=== PATIENT | female | born 1990 | race Caucasian/White ===

== ENCOUNTER 2018-08-10 23:32 | Emergency (ER) | payer MEDICAID ==
[~2018-08-10] VITALS: Ht 172.7 cm; Wt 52.0 kg
[2018-08-11 00:23] VITALS: BP 157/91
== END 2018-08-11 02:10 | disposition left against medical advice (07) ==
LOC: ER 23:32
DX: Z53.21 Procedure and treatment not carried out due to patient leaving prior to being seen by health care provider (principal)

== ENCOUNTER 2019-03-25 14:39 | Inpatient (IN) | payer MEDICAID ==
[~2019-03-25] VITALS: Ht 167.6 cm; Wt 109.8 kg
[2019-03-25] MEDS ORDERED: SODIUM CHLORIDE 0.9% 1,000 ML IV ONE (15:30)
[2019-03-25 15:54] LABS: HEMATOCRIT. 31.1 % (36.0-48.0); HEMOGLOBIN. 10.7 g/dL (12.0-16.0); MEAN CORPUSCULAR HEMOGLOBIN 29.5 pg (28.0-32.0); MEAN CORPUSCULAR VOLUME 85.5 fL (81.0-99.0); MEAN PLATELET VOLUME 10.2 fl (7.4-10.4); PLATELET 114 x1000/uL (130-400); RED BLOOD CELL COUNT 3.64 mill/uL (4.2-5.4); RED CELL DISTRIBUTION WIDTH 14.7 % (11.6-14.6)
[2019-03-25 15:55] LABS: CHLORIDE 105 mEq/L (98-107)
[2019-03-25 16:08] LABS: PLATELET ESTIMATE DECREASED
[2019-03-25 16:20] LABS: B-HCG QUANTITATIVE 31870 mIU/mL (<3)
[2019-03-25] MEDS ORDERED: POTASSIUM CHLORIDE 20MEQ/PACKET PO ONE (16:30)
[2019-03-25] MEDS ORDERED: ACETAMINOPHEN 325MG TABLET PO ONE (16:45)
[2019-03-25 16:55] LABS: T4 FREE 1.36 ng/dL (0.76-1.46)
[2019-03-25 17:02] LABS: CLARITY URINE TURBID (CLEAR); KETONES URINE TRACE (NEGATIVE); LEUKOCYTE ESTERASE URINE 3+ (NEGATIVE); NITRITE URINE POSITIVE (NEGATIVE); OCCULT BLOOD URINE 1+ (NEGATIVE); PROTEIN URINE 3+ (NEGATIVE); SPECIFIC GRAVITY URINE 1.023 (1.005-1.030)
[2019-03-25 17:08] LABS: COLOR URINE YELLOW (YELLOW)
[2019-03-25 17:22] LABS: *AMPHETAMINES SCREEN URINE NEGATIVE (NEGATIVE); *BARBITURATES SCREEN URINE NEGATIVE (NEGATIVE); *BENZODIAZEPINES SCREEN URINE NEGATIVE (NEGATIVE); *COCAINE SCREEN URINE NEGATIVE (NEGATIVE); METHADONE URINE SCREEN NEGATIVE (NEGATIVE); OPIATES URINE SCREEN NEGATIVE (NEGATIVE)
[2019-03-25 17:23] LABS: CANNABINOID URINE SCREEN NEGATIVE (NEGATIVE); PHENCYCLIDINE URINE SCREEN NEGATIVE (NEGATIVE)
[2019-03-25] MEDS ORDERED: POTASSIUM CHLORIDE 20MEQ TABLET SR PO ONE (20:15)
[2019-03-25] MEDS ORDERED: CEFTRIAXONE 1 G PREMIX 50 ML IV NR (20:15)
[2019-03-25] MEDS: SODIUM CHLORIDE 0.9% 1,000 ML IV SCH (20:19)
[2019-03-25] MEDS: ACETAMINOPHEN 325MG TABLET PO PRN (20:37)
[2019-03-25 22:46] VITALS: BP 103/51
[2019-03-26 00:07] VITALS: BP 127/69
[2019-03-26] MEDS: SODIUM CHLORIDE 0.9% 1,000 ML IV SCH ×2 (01:55→19:22)
[2019-03-26 04:00] VITALS: BP 116/45
[2019-03-26] MEDS: ACETAMINOPHEN 325MG TABLET PO PRN ×2 (04:19→17:14)
[2019-03-26 06:13] LABS: HEMOGLOBIN. 9.5 g/dL (12.0-16.0); MEAN CORPUSCULAR HEMOGLOBIN 29.9 pg (28.0-32.0); MEAN PLATELET VOLUME 10.1 fl (7.4-10.4); PLATELET 87 x1000/uL (130-400); RED BLOOD CELL COUNT 3.18 mill/uL (4.2-5.4); RED CELL DISTRIBUTION WIDTH 14.6 % (11.6-14.6)
[2019-03-26 06:30] LABS: CHLORIDE 111 mEq/L (98-107)
[2019-03-26 08:00] VITALS: BP 101/57
[2019-03-26] MEDS: POTASSIUM CHLORIDE 20MEQ TABLET SR PO SCH ×3 (08:45→15:29)
[2019-03-26 12:00] VITALS: BP 109/61
[2019-03-26 13:52] LABS: PLATELET ESTIMATE DECREASED
[2019-03-26 16:10] VITALS: BP 132/84
[2019-03-26] MEDS ORDERED: CEFTRIAXONE 1 G PREMIX 50 ML IV SCH (19:15)
[2019-03-26 19:46] VITALS: BP 127/65
[2019-03-26] MEDS: CEFTRIAXONE 1 G PREMIX 50 ML IV SCH (20:13)
[2019-03-27 06:48] LABS: CHLORIDE 108 mEq/L (98-107)
[2019-03-27 07:05] LABS: BASOPHILS % 0.1 % (0.0-2.0); EOSINOPHILS % 1.3 % (0.0-5.0); HEMATOCRIT. 26.9 % (36.0-48.0); HEMOGLOBIN. 9.4 g/dL (12.0-16.0); LYMPHOCYTES % 8.6 % (20.0-50.0); MEAN CORPUSCULAR HEMOGLOBIN 29.6 pg (28.0-32.0); MEAN CORPUSCULAR VOLUME 84.6 fL (81.0-99.0); MEAN PLATELET VOLUME 10.2 fl (7.4-10.4); MONOCYTES % 8.9 % (2.0-8.0); NEUTROPHILS % 81.1 % (40.0-76.0); PLATELET 92 x1000/uL (130-400); RED BLOOD CELL COUNT 3.18 mill/uL (4.2-5.4); RED CELL DISTRIBUTION WIDTH 14.6 % (11.6-14.6)
[2019-03-27 08:00] VITALS: BP 123/70
[2019-03-27] MEDS: SODIUM CHLORIDE 0.9% 1,000 ML IV SCH ×2 (09:18→21:14)
[2019-03-27] MEDS ORDERED: POTASSIUM CHLORIDE 20MEQ TABLET SR PO NR (11:30)
[2019-03-27] MEDS ORDERED: HYDROCODONE/ACETAMINOPHEN 5/325MG TABLET PO PRN (11:45)
[2019-03-27 12:00] VITALS: BP 106/57
[2019-03-27 16:00] VITALS: BP 120/59
[2019-03-27] MEDS: ACETAMINOPHEN 325MG TABLET PO PRN (16:58)
[2019-03-27 20:00] VITALS: BP 119/63
[2019-03-27] MEDS: CEFTRIAXONE 1 G PREMIX 50 ML IV SCH ×3 (20:00→21:29)
[2019-03-27] MEDS: CEPHALEXIN 250MG CAPSULE PO SCH (22:18)
[2019-03-28] VITALS: BP 128/78
[2019-03-28] MEDS: ACETAMINOPHEN 325MG TABLET PO PRN (02:29)
[2019-03-28 04:00] VITALS: BP 126/68
[2019-03-28 06:55] LABS: HEMATOCRIT. 26.9 % (36.0-48.0); HEMOGLOBIN. 9.4 g/dL (12.0-16.0); MEAN CORPUSCULAR VOLUME 83.3 fL (81.0-99.0); MEAN PLATELET VOLUME 9.4 fl (7.4-10.4); PLATELET 114 x1000/uL (130-400); RED BLOOD CELL COUNT 3.23 mill/uL (4.2-5.4); RED CELL DISTRIBUTION WIDTH 14.5 % (11.6-14.6)
[2019-03-28] MEDS: SODIUM CHLORIDE 0.9% 1,000 ML IV SCH ×2 (07:15→16:16)
[2019-03-28 07:42] LABS: CHLORIDE 107 mEq/L (98-107)
[2019-03-28 08:00] VITALS: BP 115/73
[2019-03-28] MEDS: CEPHALEXIN 250MG CAPSULE PO SCH ×4 (09:08→21:00)
[2019-03-28] MEDS: PRENATAL VIT/FE FUMARATE/FA TABLET PO SCH (09:08)
[2019-03-28 10:28] LABS: PLATELET ESTIMATE SLIGHTLY DECREASED
[2019-03-28 12:00] VITALS: BP 125/77
[2019-03-28] MEDS ORDERED: POTASSIUM CHLORIDE 20MEQ TABLET SR PO SCH (12:15)
[2019-03-28 16:00] VITALS: BP 109/56
[2019-03-28 20:00] VITALS: BP 112/46
[2019-03-29] VITALS: BP 128/50
[2019-03-29 04:00] VITALS: BP 130/60
[2019-03-29 08:00] VITALS: BP 102/66
[2019-03-29] MEDS: PRENATAL VIT/FE FUMARATE/FA TABLET PO SCH (08:50)
[2019-03-29] MEDS: CEPHALEXIN 250MG CAPSULE PO SCH (08:53)
[2019-03-29 12:00] VITALS: BP 124/71
[2019-03-29 13:21] VITALS: BP 124/65
== END 2019-03-29 14:39 | disposition home or self-care (01) | DRG 566 ==
LOC: ER 14:39 → 6WST 19:00 → ENRESERV 21:02
PROVIDERS: ADMIT Internal Medicine; ATTEND Internal Medicine
DX: O99.113 Other diseases of the blood and blood-forming organs and certain disorders involving the immune mechanism complicating pregnancy, third trimester (principal); A41.51 Sepsis due to Escherichia coli [E. coli]; E43 Unspecified severe protein-calorie malnutrition; D69.6 Thrombocytopenia, unspecified; O98.813 Other maternal infectious and parasitic diseases complicating pregnancy, third trimester; O23.43 Unspecified infection of urinary tract in pregnancy, third trimester; E87.6 Hypokalemia; O25.13 Malnutrition in pregnancy, third trimester; O99.013 Anemia complicating pregnancy, third trimester; Z3A.32 32 weeks gestation of pregnancy; Z59.0 Homelessness; O99.283 Endocrine, nutritional and metabolic diseases complicating pregnancy, third trimester; F17.210 Nicotine dependence, cigarettes, uncomplicated; O99.333 Smoking (tobacco) complicating pregnancy, third trimester; F17.200 Nicotine dependence, unspecified, uncomplicated
CPT/HCPCS: 36415; 71045; 76805; 80048; 80305; 83036; 83605; 83880; 84132; 84145; 84439; 84443; 84484; 84702; 85379; 86850; 86900; 87077; 87186; 93005; 93306; 93970; 96376; 99285; C1893; J0696; J7030

== ENCOUNTER 2019-11-16 21:12 | Emergency (ER) | payer MEDICAID, OTHER ==
[~2019-11-16] VITALS: Ht 172.7 cm; Wt 100.0 kg
[2019-11-17] MEDS ORDERED: ACETAMINOPHEN WITH CODEINE 300/30MG TABLET PO ONE
[2019-11-17] MEDS ORDERED: BACITRACIN ZINC OINT UDPKT TOP ONE (03:00)
[2019-11-17] MEDS ORDERED: CLINDAMYCIN 600 MG in DEXTROSE 5% WATER 50 ML IV ONE ×2 (03:00→10:15)
[2019-11-17] MEDS ORDERED: LIDOCAINE HCL/PF 1% 10 MG/ML 5ML VIAL IJ ONE (03:00)
[2019-11-17] MEDS ORDERED: CLINDAMYCIN 600 MG in SODIUM CHLORIDE 0.9% 50 ML IV NR (03:30)
[2019-11-17] MEDS ORDERED: CLINDAMYCIN 600 MG in DEXTROSE 5% WATER 50 ML IV NR (03:30)
[2019-11-17] MEDS ORDERED: MORPHINE SULFATE 2 MG/ML CPJ (NOT FOR IM USE) IV ONE (03:45)
[2019-11-17] MEDS ORDERED: ONDANSETRON HCL 4MG/2ML INJ IV ONE (03:45)
[2019-11-17 11:00] LABS: CLARITY URINE TURBID (CLEAR); KETONES URINE TRACE (NEGATIVE); LEUKOCYTE ESTERASE URINE 2+ (NEGATIVE); NITRITE URINE NEGATIVE (NEGATIVE); OCCULT BLOOD URINE 3+ (NEGATIVE); PROTEIN URINE 2+ (NEGATIVE); SPECIFIC GRAVITY URINE 1.031 (1.005-1.030)
[2019-11-17 11:03] LABS: BASOPHILS % 0.9 % (0.0-2.0); HEMATOCRIT. 34.4 % (36.0-48.0); HEMOGLOBIN. 11.3 g/dL (12.0-16.0); LYMPHOCYTES % 16.7 % (20.0-50.0); MEAN CORPUSCULAR VOLUME 82.2 fL (81.0-99.0); MONOCYTES % 3.6 % (2.0-8.0); NEUTROPHILS % 76.8 % (40.0-76.0); PLATELET 391 x1000/uL (130-400); RED BLOOD CELL COUNT 4.19 mill/uL (4.2-5.4); RED CELL DISTRIBUTION WIDTH 15.7 % (11.6-14.6)
[2019-11-17 11:05] LABS: COLOR URINE BLOODY (YELLOW)
[2019-11-17 11:09] LABS: CHLORIDE 101 mEq/L (98-107)
[2019-11-17] MEDS: CLINDAMYCIN HCL 150MG CAPSULE PO SCH ×2 (12:06→12:18)
[2019-11-17 19:30] VITALS: BP 118/76
[2019-11-17] MEDS ORDERED: METRONIDAZOLE 500MG TABLET PO SCH (21:00)
== END 2019-11-17 20:45 | disposition home or self-care (01) ==
LOC: ER 21:12
DX: L03.221 Cellulitis of neck (principal); L02.11 Cutaneous abscess of neck; N39.0 Urinary tract infection, site not specified; A59.9 Trichomoniasis, unspecified
CPT/HCPCS: 10060; 36415; 70490; 80053; 81003; 85025; 87040; 87086; 96365; 96366; 96375; 99284; J2270; J2405; J3490; J7060

== ENCOUNTER 2021-05-11 08:23 | Emergency (ER) | payer OTHER ==
[~2021-05-11] VITALS: Ht 165.1 cm; Wt 75.0 kg
[2021-05-11] MEDS ORDERED: MORPHINE SULFATE 4 MG/ML CPJ (NOT FOR IM USE) IV STA (08:46)
[2021-05-11] MEDS ORDERED: ONDANSETRON HCL 4MG/2ML INJ IV STA (08:46)
[2021-05-11 09:14] LABS: BASOPHILS % 0.8 % (0.0-2.0); EOSINOPHILS % 1.4 % (0.0-5.0); HEMATOCRIT. 38.2 % (36.0-48.0); LYMPHOCYTES % 10.2 % (20.0-50.0); MEAN CORPUSCULAR HEMOGLOBIN 29.5 pg (28.0-32.0); MEAN CORPUSCULAR VOLUME 86.4 fL (81.0-99.0); MONOCYTES % 8.1 % (2.0-8.0); NEUTROPHILS % 79.5 % (40.0-76.0); PLATELET 248 x1000/uL (130-400); RED BLOOD CELL COUNT 4.42 mill/uL (4.2-5.4); RED CELL DISTRIBUTION WIDTH 14.6 % (11.6-14.6)
[2021-05-11 09:16] LABS: CLARITY URINE CLOUDY (CLEAR); COLOR URINE YELLOW (YELLOW); KETONES URINE TRACE (NEGATIVE); LEUKOCYTE ESTERASE URINE 2+ (NEGATIVE); NITRITE URINE POSITIVE (NEGATIVE); OCCULT BLOOD URINE TRACE (NEGATIVE); PROTEIN URINE NEGATIVE (NEGATIVE); SPECIFIC GRAVITY URINE 1.017 (1.005-1.030); UROBILINOGEN URINE 0.2 E.U./dL (0.2-1.0)
[2021-05-11 09:21] LABS: CHLORIDE 103 mEq/L (98-107)
[2021-05-11 09:24] LABS: INR 0.9
[2021-05-11] MEDS ORDERED: TOPUD PO (10:07)
[2021-05-11] MEDS ORDERED: SULF1TAB48 PO (10:07)
[2021-05-11 10:15] VITALS: BP 138/84
== END 2021-05-11 10:57 | disposition home or self-care (01) ==
LOC: ER 08:56
DX: K80.20 Calculus of gallbladder without cholecystitis without obstruction (principal); N39.0 Urinary tract infection, site not specified; F17.200 Nicotine dependence, unspecified, uncomplicated; F15.10 Other stimulant abuse, uncomplicated
CPT/HCPCS: 36415; 76705; 80053; 81003; 81025; 83690; 85025; 85610; 87077; 87086; 87186; 96374; 96375; 99284; J2270; J2405